=== PATIENT | female | born 1980 | race Caucasian/White ===

== ENCOUNTER 2023-01-12 16:39 | Emergency (ER) | payer OTHER ==
[~2023-01-12] VITALS: Ht 160 cm; Wt 96.3 kg
[2023-01-12 17:07] VITALS: PULSE 92; RESP 15; TEMP 97.5; O2SAT 99
[2023-01-12] MEDS ORDERED: ONDANSETRON 4 MG/2 ML VIAL IVP ONE (17:15)
[2023-01-12] MEDS ORDERED: MORPHINE SULFATE 4 MG/ML SYR IVP ONE (17:15)
--- NOTE | 2023-01-12 17:43 | NUR ---
TO ER BED 6
[2023-01-12 17:44] LABS: HEMATOCRIT 38.1 % (36-48); HEMOGLOBIN 12.4 g/dL (12.0-16.0); MEAN CORPUSCULAR HEMOGLOBIN 28 pg (27-31); MEAN CORPUSCULAR HGB CONC 33 g/dL (33-37); PLATELET COUNT (AUTO) 229 K/uL (140-450); RED BLOOD CELL COUNT(AUTO) 4.43 MIL/uL (4.20-5.40); RED CELL DISTRIBUTION WIDTH 13.6 % (11.6-13.7); WHITE BLOOD COUNT (AUTO) 11.2 K/uL (4.8-10.8)
[2023-01-12 17:59] LABS: ALBUMIN 3.7 g/dL (3.4-5.0); ANION GAP 18.3 (8-16); CARBON DIOXIDE 22.6 mmol/L (21-32); CREATININE 1.3 mg/dL (0.6-1.3); POTASSIUM 3.9 mmol/L (3.5-5.1); TOTAL BILIRUBIN 0.7 mg/dL (0.0-1.0)
[2023-01-12 18:06] LABS: PROTHROMBIN TIME 10.3 secs (10.8-13.4)
[2023-01-12] MEDS: NACL 0.9% 1,000 ML IV SCH ×2 (18:06→18:19)
[2023-01-12 18:09] LABS: BASOPHILS % (MANUAL) 1 % (0-2); EOSINOPHILS % (MANUAL) 0 % (0-4); LYMPHOCYTES % (MANUAL) 15 % (20-46); MONOCYTES % (MANUAL) 5 % (5-12)
[2023-01-12] MEDS ORDERED: PIPERACILLIN/TAZOBACTAM 3.375 GM in DEXTROSE 5% 50 ML IV ONE (18:20)
[2023-01-12] MEDS ORDERED: NACL 0.9% 1,000 ML IV ONE (18:20)
--- NOTE | 2023-01-12 18:20 | NUR ---
42 y/o female bib for c/o abdominal pain that radiates to right flank. Patient reports nausea and vomiting. Patient is unable to take medication d/t vomiting. Patient denies any sick contacts or new foods. Denies any burning while urination. Denies any fevers, chills or SOB. Medical History: Denies NKDA
--- NOTE | 2023-01-12 18:31 | NUR ---
Patient was taken to CT via wheelchair.
--- NOTE | 2023-01-12 18:45 | NUR ---
Patient returned from CT
[2023-01-12 18:59] LABS: APPEARANCE,URINE CLEAR (CLEAR); BILIRUBIN,URINE NEGATIVE (NEGATIVE); BLOOD, URINE NEGATIVE (NEGATIVE); COLOR,URINE YELLOW (YELLOW); LEUKOCYTE ESTERASE ,URINE NEGATIVE (NEGATIVE); NITRITE, URINE NEGATIVE (NEGATIVE); UGLUCOSE NEGATIVE (NEGATIVE)
--- NOTE | 2023-01-12 19:01 | NUR ---
The patient's care was reviewed and supervised by ABA VALDES RN.
--- NOTE | 2023-01-12 19:05 | NUR ---
Report given to ALBINA Garduno for transfer of care.
--- NOTE | 2023-01-12 19:16 | NUR ---
Patient was medicated by RN, patients pain decreased to 8/10.
[2023-01-12] MEDS ORDERED: KETOROLAC 15 MG/ML VIAL IVP ONE (20:40)
--- NOTE | 2023-01-12 20:54 | NUR ---
spoke to Dr. Alejo, pt CT with renal stones. No need for antibiotics at this time. Ok to hold med per Dr. Alejo.
[2023-01-12] MEDS ORDERED: IBUP-1842 PO ×2 (20:58→21:27)
[2023-01-12] MEDS ORDERED: TAMS0.4C96 PO ×2 (20:58→21:27)
[2023-01-12] MEDS ORDERED: OXYC5TAB4 PO ×3 (20:58→21:33)
[2023-01-12] MEDS ORDERED: ONDA-188 SL ×2 (20:58→21:27)
[2023-01-12 21:27] VITALS: BP 117/68; PULSE 91; RESP 16; TEMP 98.4; O2SAT 96
--- NOTE | 2023-01-12 21:44 | NUR ---
Pt cleared for discharge. VSS, afebrile. NAD noted. Denies any further pain. Rx sent to [facility] pharmacy. Pt and verbalized understanding of DC instructions. Pt ambulated out of ED in stable condition.
--- NOTE | 2023-01-12 21:45 | NUR ---
Patient discharged with v/s stable. Written and verbal after care instructions given and explained. Patient verbalized understanding. All questions addressed prior to discharge. Advised to follow up with PMD.
== END 2023-01-12 21:45 | disposition home or self-care (01) ==
LOC: MED 16:39
DX: R10.9 Unspecified abdominal pain (principal); R11.10 Vomiting, unspecified; R68.83 Chills (without fever); Z79.899 Other long term (current) drug therapy
CPT/HCPCS: 36415; 74176; 80053; 81003; 81025; 82550; 83605; 83690; 85025; 85610; 85730; 87040; 87086; 93005; 96361; 96374; 96375; 99285; J1885; J2270; J2405; J7030